=== PATIENT | male | born 1985 | race Caucasian/White ===

== ENCOUNTER → 2023-12-02 09:03 | Outpatient (REF) | payer SELFPAY | LOC: OPBD 09:03 | DX: Z71.0 Person encountering health services to consult on behalf of another person (principal) | CPT/HCPCS: 76499 ==

== ENCOUNTER → 2024-12-26 | Outpatient (CLI) | payer SELFPAY | END | disposition home or self-care (01) | DX: E29.1 Testicular hypofunction (principal); Z13.89 Encounter for screening for other disorder | CPT/HCPCS: 76499 ==